=== PATIENT | male | born 1950 | race Caucasian/White ===

== ENCOUNTER 2017-05-21 13:48 | Emergency (ER) | payer MEDICARE | END 2017-05-21 15:40 | disposition home or self-care (01) | LOC: D.ER 13:48 | DX: K04.7 Periapical abscess without sinus (principal); K08.89 Other specified disorders of teeth and supporting structures; R68.84 Jaw pain; R50.9 Fever, unspecified; R51 Headache; H92.02 Otalgia, left ear ==